=== PATIENT | male | born 2000 | race Caucasian/White ===

== ENCOUNTER 2019-05-30 19:41 | Emergency (ER) | payer BC, SELFPAY ==
[2019-05-30] MEDS ORDERED: Acetaminophen 500 MG TAB ONE (20:09)
[2019-05-30] MEDS ORDERED: Ondansetron ODT 4 MG TAB ONE (20:17)
== END 2019-05-30 21:05 | disposition home or self-care (01) ==
LOC: BURERS 19:41
DX: B34.9 Viral infection, unspecified (principal); J45.909 Unspecified asthma, uncomplicated
CPT/HCPCS: 99283; Q0162

== ENCOUNTER 2020-11-17 13:15 | Emergency (ER) | payer BC, SELFPAY | END 2020-11-17 14:11 | disposition home or self-care (01) | LOC: BURERS 13:15 | DX: J06.9 Acute upper respiratory infection, unspecified (principal); Z20.822 Contact with and (suspected) exposure to COVID-19; J45.909 Unspecified asthma, uncomplicated | CPT/HCPCS: 71045 ==